=== PATIENT | male | born 1940 | race Caucasian/White ===

== ENCOUNTER 2017-09-15 09:21 | Day surgery (SDC) | payer MEDICARE, OTHER ==
[~2017-09-15 09:21] MED LIST: Lactated Ringers 1,000 ML IV SCH
--- NOTE | 2017-09-15 11:25 | PCM.HPR ---
H & P Addendum review - H & P Addendum Review Date of Original H & P: 09/06/17 Date Reviewed: 09/15/17 Time Reviewed: 11:45 Patient was Examined: No Changes
[2017-09-15] MEDS ORDERED: EPINEPHrine 1 MG/ML SDV ONE (12:04)
[2017-09-15] MEDS ORDERED: Lidocaine 2% with EPINEPHrine 1:100,000 20 ML MDV ONE (12:05)
--- NOTE | 2017-09-15 12:24 | PCM.OPNOTE ---
- General Post-Op/Procedure Note Date of Surgery/Procedure: 09/15/17 Operative Procedure(s): Excision and primary closure of Left Pinna Actinic keratosis. Final defect size 1.1 cm X 1.1 cm. [CPT - 76476] Findings: Left pinna Scaphoid fossa exophytic lesion - 1 cm X 1 cm . Previously biopsied - actinic keratosis. Anesthesia Technique: Local Other Anesthesia Type: 2% lidocaine in 1: 100 000 epinephrine; 1.5 ml used Primary Surgeon: Consuelo Earl Condition: Good Free Text/Narrative:: Indications: Painful lesion Left pinna; Procedure: An informed consent was obtained and a timeout was performed. Patient was then brought back to operating room and laid supine on the operating table. The left ear was prepped and draped in a standard sterile fashion. Margins of incision were marked - just adjacent to the lesion. 2% lidocaine with 100,000 epinephrine was injected 1.5 mils was used. Using a #15 blade the lesion was incised overlying the premarked incision. Further dissection was performed with iris scissors. The lesion was removed in its entirety. Underlying perichondrium was left intact. The final defect was 1.1 x 1.1 cm. The skin was mobilized. Hemostasis was ensured with bipolar cautery at a setting of 10 W. A vertical closure was performed in 2 layers with 4-0 Monocryl subcutaneous suture and 4-0 Prolene for skin. A pressure dressing was applied with a iodoform gauze and further fluffs were placed and head bandage was put on. This concluded the procedure. Patient follow-up will be in 5 days time for removal of head bandage.
== END 2017-09-15 13:30 | disposition home or self-care (01) ==
LOC: MW.SDS 09:21
PROVIDERS: ATTEND Otolaryngology
DX: C44.229 Squamous cell carcinoma of skin of left ear and external auricular canal (principal); E78.5 Hyperlipidemia, unspecified; I10 Essential (primary) hypertension; Z79.899 Other long term (current) drug therapy; Z79.82 Long term (current) use of aspirin
CPT/HCPCS: 88305; J0171